=== PATIENT | female | born 1995 | race Caucasian/White ===

== ENCOUNTER 2018-04-17 18:39 | Emergency (ER) | payer OTHER, SELFPAY ==
[2018-04-17 19:09] LABS: Lavender RECEIVED; Red RECEIVED
[2018-04-17 19:10] LABS: #Eosinphils 0.1 thou/uL (0.0-0.7); #Lymphocytes 3.8 thou/uL (1.20-3.40); #Monocytes 0.5 thou/uL (0.11-0.59); #Neutrophils 4.2 thou/uL (1.40-6.50); %Basophils 0.3 % (0.0-1.0); %Eosinophils 1.7 % (0.0-10.0); %Lymphocytes 43.8 % (21.0-51.0); %Monocytes 5.7 % (0.0-10.0); %Neutrophils 48.6 % (42.0-75.0); Mean Corpuscular HGB CONC 34.8 g/dL (32.0-36.0); Mean Corpuscular Volume 89.1 fl (81.0-99.0); Mean Platelet Volume 8.3 fL (7.4-10.4); Platelet Count 229 thou/uL (130-400); Red Blood Cell (RBC) Count 4.18 mill/uL (4.20-5.40); White Blood Cell (WBC) Count 8.6 thou/uL (4.8-10.8)
--- NOTE | 2018-04-17 19:24 | RAD ---
SINGLE VIEW OF THE CHEST 04/17/18 COMPARISON: 09/14/13 HISTORY: Seizure one hour prior to arrival. Patient reports hitting head at the time of the seizure. FINDINGS: Single view of the chest shows a normal sized cardiomediastinal silhouette. There is no evidence of c onsolidation, mass, or pleural effusion. The bones are unremarkable. IMPRESSION: No evidence of acute cardiopulmonary disease. POS: [facility]
[2018-04-17] MEDS ORDERED: Acetaminophen 500 MG TAB ONE (19:32)
[2018-04-17 19:37] LABS: ALT (SGPT) 12 U/L (8-55); AST (SGOT) 13 U/L (5-34); Albumin 4.2 g/dL (3.5-5.0); Alkaline Phosphatase 84 U/L (40-150); Anion Gap 10 mmol/L (10-20); BUN (Urea Nitrogen) 10 mg/dL (7.0-18.7); Bilirubin, Total 0.3 mg/dL (0.2-1.2); Calc. Creatinine Clearance 0 mL/min (70-130); Calcium 9.6 mg/dL (7.8-10.44); Carbon Dioxide 23 mmol/L (22-29); Chloride 112 mmol/L (98-107); Estimated GFR-MDRD Greater than 90; Globulin 2.5 g/dL (2.4-3.5); Glucose 79 mg/dL (70-105); Potassium 3.7 mmol/L (3.5-5.1); Protein, Total 6.7 g/dL (6.0-8.3); Sodium 141 mmol/L (136-145)
[2018-04-17 20:13] LABS: Bilirubin Negative (Negative); Blood, Urine Negative (Negative); Clarity CLEAR (Clear); Glucose, Urine (Dipstick) Negative (Negative); Leukocyte Negative (Negative); Nitrite Negative (Negative); Protein, Urine (Dipstick) Negative (Neg-Trace); Specific Gravity, Urine 1.017 (1.002-1.036); pH, Urine 6.5 (5.0-9.0)
[2018-04-17 20:27] LABS: Pregnancy Test - Urine (BHCG) Negative (Negative); Pregu Control Background? CLEAR/WHITE (CLR/WHITE); Pregu Control Bar Appear? YES (CONTROL BAR); Specific Gravity 1.017 (1.002-1.036)
== END 2018-04-17 21:39 | disposition home or self-care (01) ==
LOC: ERS 18:39
DX: G40.909 Epilepsy, unspecified, not intractable, without status epilepticus (principal); J45.909 Unspecified asthma, uncomplicated; F41.9 Anxiety disorder, unspecified; F31.9 Bipolar disorder, unspecified; F43.10 Post-traumatic stress disorder, unspecified; Z79.899 Other long term (current) drug therapy
CPT/HCPCS: 71045; 80053; 81003; 81025; 83735; 85025; 93005

== ENCOUNTER 2018-12-02 12:15 | Emergency (ER) | payer OTHER ==
[2018-12-02 12:49] LABS: Lavender RECEIVED; Red RECEIVED
[2018-12-02 12:54] LABS: #Eosinphils 0.1 thou/uL (0.0-0.7); #Lymphocytes 2.5 thou/uL (1.20-3.40); #Monocytes 0.6 thou/uL (0.11-0.59); #Neutrophils 6.1 thou/uL (1.40-6.50); %Basophils 0.5 % (0.0-1.0); %Eosinophils 0.6 % (0.0-10.0); %Lymphocytes 27.5 % (21.0-51.0); %Monocytes 6.1 % (0.0-10.0); %Neutrophils 65.4 % (42.0-75.0); Hemoglobin 13.5 g/dL (12.0-16.0); Mean Corpuscular Hemoglobin 30.2 pg (27.0-31.0); Mean Corpuscular Volume 89.1 fL (78.0-98.0); Mean Platelet Volume 8.7 fL (7.4-10.4); Platelet Count 232 thou/uL (130-400); RBC Distribution Width 12.2 % (11.5-14.5); Red Blood Cell (RBC) Count 4.45 mill/uL (4.20-5.40); White Blood Cell (WBC) Count 9.3 thou/uL (4.8-10.8)
[2018-12-02 13:14] LABS: ALT (SGPT) 19 U/L (8-55); AST (SGOT) 11 U/L (5-34); Albumin 4.1 g/dL (3.5-5.0); Alkaline Phosphatase 77 U/L (40-150); Anion Gap 10 mmol/L (10-20); BHCG - Serum Negative (NEGATIVE); BUN (Urea Nitrogen) 8 mg/dL (7.0-18.7); Bilirubin, Total 0.2 mg/dL (0.2-1.2); Calc. Creatinine Clearance 0 mL/min (70-130); Calcium 9.6 mg/dL (7.8-10.44); Carbon Dioxide 29 mmol/L (22-29); Chloride 106 mmol/L (98-107); Estimated GFR-MDRD Greater than 90; Globulin 2.5 g/dL (2.4-3.5); Glucose 106 mg/dL (70-105); Potassium 4.5 mmol/L (3.5-5.1); Pregs Control Background? CLEAR/WHITE (CLR/WHITE); Pregs Control Bar Appear? YES (CONTROL BAR); Protein, Total 6.6 g/dL (6.0-8.3); Sodium 140 mmol/L (136-145)
[2018-12-02] MEDS ORDERED: Ibuprofen 800 MG TAB ONE (13:24)
[2018-12-02] MEDS ORDERED: Acetaminophen 500 MG TAB ONE (13:24)
== END 2018-12-02 13:45 ==
LOC: ERS 12:15
DX: R56.9 Unspecified convulsions (principal); J45.909 Unspecified asthma, uncomplicated; F41.9 Anxiety disorder, unspecified; F31.9 Bipolar disorder, unspecified
CPT/HCPCS: 36415; 80053; 84703; 85025; 99284

== ENCOUNTER 2019-07-06 08:00 | Inpatient (IN) | payer OTHER, SELFPAY ==
[2019-07-06 08:35] LABS: Bacteria/HPF None Seen HPF (None Seen); Bilirubin Negative (Negative); Blood, Urine Negative (Negative); Clarity Turbid (Clear); Glucose, Urine (Dipstick) Normal (Negative); Leukocyte 250 Leu/uL (Negative); Mucous/LPF Rare LPF (<2+); Nitrite Negative (Negative); Pregnancy Test - Urine (BHCG) Negative (Negative); Pregu Control Background? CLEAR/WHITE (CLR/WHITE); Pregu Control Bar Appear? YES (CONTROL BAR); Protein, Urine (Dipstick) Negative (Neg-Trace); RBC/HPF None Seen HPF (0-3); Specific Gravity 1.025 (1.002-1.036); Urobilinogen Normal mg/dL (Less than 2)
[2019-07-06 08:38] LABS: #Eosinphils 0.2 thou/uL (0.0-0.7); #Lymphocytes 2.4 thou/uL (1.20-3.40); #Monocytes 0.7 thou/uL (0.11-0.59); %Basophils 0.2 % (0.0-1.0); %Eosinophils 1.4 % (0.0-10.0); %Lymphocytes 21.6 % (21.0-51.0); %Monocytes 5.8 % (0.0-10.0); %Neutrophils 70.9 % (42.0-75.0); Hemoglobin 11.8 g/dL (12.0-16.0); Mean Corpuscular HGB CONC 33.3 g/dL (32.0-36.0); Mean Corpuscular Hemoglobin 29.9 pg (27.0-31.0); Mean Corpuscular Volume 89.8 fL (78.0-98.0); Platelet Count 250 thou/uL (130-400); RBC Distribution Width 12.3 % (11.5-14.5); Red Blood Cell (RBC) Count 3.95 mill/uL (4.20-5.40); White Blood Cell (WBC) Count 11.3 thou/uL (4.8-10.8)
[2019-07-06 08:56] LABS: ALT (SGPT) 16 U/L (8-55); AST (SGOT) 13 U/L (5-34); Albumin 3.5 g/dL (3.5-5.0); Alkaline Phosphatase 102 U/L (40-150); Anion Gap 11 mmol/L (10-20); BUN (Urea Nitrogen) 12 mg/dL (7.0-18.7); Bilirubin, Total Less than 0.2 mg/dL (0.2-1.2); Calc. Creatinine Clearance 0 mL/min (70-130); Calcium 8.9 mg/dL (7.8-10.44); Carbon Dioxide 24 mmol/L (22-29); Chloride 107 mmol/L (98-107); Estimated GFR-MDRD Greater than 90; Globulin 2.3 g/dL (2.4-3.5); Glucose 103 mg/dL (70-105); Lipase 29 U/L (8-78); Potassium 3.9 mmol/L (3.5-5.1); Protein, Total 5.8 g/dL (6.0-8.3); Sodium 138 mmol/L (136-145)
--- NOTE | 2019-07-06 09:52 | ULT ---
Gallbladder ultrasound: Multiple grayscale images of right upper quadrant obtained according to protocol. INDICATIONS: Right upper quadrant pain. FINDINGS: Patient is not fasting. The gallbladder is contracted and not well evaluated. No evidence of gallston es identified. Common bile duct is normal caliber. Liver is mildly echogenic. Pancreas is mostly obscured but appears unremarkable as visualized. Right kidney is imaged and appears unremarkable. IMPRESSION: Nondiagnostic exam due to nonfasting status. Recommend repeat exam with overnight fast. Technologist describes a negative Moreno's sign.
[2019-07-06] MEDS ORDERED: Morphine 4 MG/ML VIAL ONE (10:22)
--- NOTE | 2019-07-06 10:48 | CT ---
CT ABDOMEN AND PELVIS WITH IV CONTRAST: HISTORY: Right upper quadrant abdominal pain. COMPARISON: 03/17/2015 FINDINGS: There are mild dependent changes in the lung bases. The liver, spleen, pancreas, adrenal glands, and kidneys are normal. The gallbladder is contracted. No calcified gallstones are seen. There is a t iny amount of fluid adjacent to the liver. No free air or lymphadenopathy is seen. Uterus and ovari es are present. A normal appearing appendix is noted. IMPRESSION: Tiny amount of free fluid adjacent to the liver; otherwise unremarkable examination. POS: [facility]
[2019-07-06] MEDS ORDERED: Piperacillin/Tazobactam 4.5 GM VIAL ONE (11:28)
[2019-07-06] MEDS ORDERED: Morphine 4 MG/ML VIAL SLOW IVP PRN (12:54)
[2019-07-06] MEDS ORDERED: Lactated Ringer's 1,000 ML IV SCH (13:00)
[2019-07-06] MEDS: Piperacillin/Tazobactam 3.375 GM in Sodium Chloride 0.9% 100 ML IVPB SCH ×2 (13:28→17:45)
[2019-07-06 13:56] VITALS: BMI 40.8
[2019-07-06] MEDS ORDERED: Ondansetron PF 4 MG/2 ML Vial IVP PRN ×2 (14:07→20:36)
--- NOTE | 2019-07-06 14:34 | HP ---
CHIEF COMPLAINT: Upper abdominal pain. HISTORY OF PRESENT ILLNESS: This is a 23-year-old female with a 3-day history of severe sharp pain in the right upper quadrant, described as 8/10. Radiates to her right shoulder into her back. She has never had this pain before. She denies history of gallstones, jaundice, pancreatitis. She has a seizure disorder and takes Lamictal, has not had a seizure for six months. This pain is associated with nausea, but no vomiting. She notes mild chronic constipation and had a normal bowel movement by her report yesterday. PAST MEDICAL HISTORY: Includes seizure disorder, asthma. SURGICAL HISTORY: Kidney stone lithotripsy with stent, tonsillectomy. SOCIAL HISTORY: No smoking or alcohol. She uses marijuana occasionally. REVIEW OF SYSTEMS: 10-system review of systems otherwise negative unless described above. PHYSICAL EXAMINATION: VITAL SIGNS: Blood pressure 102/67, pulse 62, respirations 18, temperature of 97.9. HEENT: Sclerae anicteric. Oropharynx clear. NECK: No lymphadenopathy. CHEST: Clear. HEART: Regular rate and rhythm. ABDOMEN: Soft, tender right upper quadrant, no localized guarding or rebound. EXTREMITIES: No ischemia or edema to extremities. LABORATORY DATA: Sodium 138, potassium 3.9, creatinine 0.74. Liver function tests normal. Lipase normal. Ultrasound shows a contracted gallbladder without stones. CT shows a contracted gallbladder without stones. There is a small amount of free fluid around the liver. ASSESSMENT: Right upper quadrant pain of uncertain etiology. She does not have gallstones, but her body habitus made the ultrasound slightly more difficult. PLAN: She does have a significant amount of stool in hepatic flexure of her colon. This could explain her symptoms. We will give her some magnesium citrate as well as check a HIDA scan to rule out cholecystitis. If HIDA scan is positive, plan surgery tomorrow. Job ID: [id number]
[2019-07-06] MEDS ORDERED: Magnesium Citrate 300 ML BOT PO SCH (16:00)
[2019-07-06] MEDS ORDERED: ISOVUE-370 76%-LOCM 1 ML ONE (16:43)
--- NOTE | 2019-07-06 18:45 | NM ---
NUCLEAR MEDICINE HEPATOBILIARY SCAN: DATE: 07/06/2019 HISTORY: 23-year-old female with right upper quadrant abdominal pain. Rule out acute cholecystitis. TECHNIQUE: Technetium 99m-mebrofenin dose: 5.0 mCi. Kinevac (CCK analog) dose: 2.1 mcg x 2 The patient was pretreated with Kinevac prior to mebrofeninTc injection. Next, 99- mebrofenin was inj ected IV. Dynamic anterior scintigraphy of abdomen for one hour. Kinevac injected. Additional dynamic anterior scintigraphy of abdomen. Counts obtained over the gallbladder. Time-activity curve g enerated. FINDINGS: There is uptake and washout of activity at the liver. Bowel activity is visualized after CCK injection. The gallbladder ejection fraction is normal: 45 % Patient experienced pain and vomiting after CCK injection. IMPRESSION: 1. No evidence of acute cholecystitis. 2. Gallbladder ejection fraction 45%
[2019-07-06] MEDS: Acetaminophen 1,000 MG in Premix Bag 1 BAG IVPB PRN (19:26)
[2019-07-06] MEDS ORDERED: Promethazine HCl 25 MG/ML VIAL IM PRN (20:36)
[2019-07-06] MEDS ORDERED: Morphine 2 MG/ML SYRINGE SLOW IVP PRN (20:36)
[2019-07-06] MEDS: D5 1/2 NS w/20 mEq KCL 1,000 ML IV SCH (21:13)
[2019-07-07] MEDS: D5 1/2 NS w/20 mEq KCL 1,000 ML IV SCH ×2 (05:41→15:57)
[2019-07-07] MEDS: Acetaminophen 1,000 MG in Premix Bag 1 BAG IVPB PRN (05:43)
[2019-07-07] MEDS: Morphine 4 MG/ML VIAL SLOW IVP PRN ×5 (07:39→23:54)
[2019-07-07] MEDS: Pantoprazole 40 MG VIAL IVP SCH (08:53)
--- NOTE | 2019-07-07 09:14 | PRG ---
DATE OF SERVICE: 07/07/2019 SUBJECTIVE: Ms. Pacheco has persistent right upper quadrant and epigastric pain. She was given magnesium citrate in the evening after her HIDA scan. She vomited some of that. Her pain is persistently sharp in the right upper quadrant, does not radiate. She has been walking some. OBJECTIVE: VITAL SIGNS: Blood pressure 114/71, pulse 62. She is afebrile. GENITOURINARY: No bowel movement yet. ABDOMEN: Slightly distended, but soft. Tender right upper quadrants. No guarding or rebound. LABORATORY DATA: HIDA scan shows normal ejection fraction. Normal gallbladder uptake and excretion. CT scan on admission showed tiny amount of free fluid adjacent to the liver without obvious cholecystitis. Ultrasound showed contracted gallbladder, but no cholecystitis. No stones seen. ASSESSMENT: 1. Right upper quadrant pain, but HIDA scan showing no acute cholecystitis. No biliary dyskinesia. 2. On further questioning, she does have a history of chlamydia, that has been treated twice. PLAN: We will ask GI for their opinion on this pain. Certainly, I do not think she has acute cholecystitis. She does have a lot of retained stool at hepatic flexure of colon, although she vomited the Mag citrate. We will continue supportive care. Job ID: [id number]
[2019-07-07] MEDS ORDERED: GoLYTELY 4,000 ml Bottle PO SCH (15:30)
--- NOTE | 2019-07-07 17:51 | CON ---
DATE OF CONSULTATION: 07/07/2019 CHIEF COMPLAINT: Abdominal pain. HISTORY OF PRESENT ILLNESS: Ms. Pacheco is a 23-year-old woman, who woke up with sharp to cramping pressure-type right upper quadrant pain, that is worse with inspiration. This pain started around 4 days ago and has been fairly continuous since then. She received morphine, which only helped somewhat. She had an ultrasound performed on her abdomen, that showed a contracted gallbladder. She had a CT scan performed, that also showed a small contracted gallbladder without other obvious source of her pain. She then was noted to have increased stool in the right colon near the hepatic flexure. She had a HIDA scan, which was normal overall. The patient reports that she has had chronic diarrhea over the last few years. She has 3 or 4 liquidy stools per day. She has seen blood mixed with the stool and on the toilet paper around 3 times over the last year, but this does not turn the water red. She has had nausea and vomiting associated with the right upper quadrant pain over the last few days. She last threw up yesterday. She has had no fever associated with this. No chest pain, but it does hurt in the right upper quadrant with inspiration. No fever. No weight loss. Her pain does get worse with spicy foods. She has had some intermittent milder pain in the right upper quadrant with inspiration that only lasts for a few seconds at a time over the last several months, that occurs around once per month, again just for a few seconds with inspiration. PAST MEDICAL HISTORY: 1. Seizure disorder. 2. Asthma. 3. She has had prior sexually transmitted infection. PAST SURGICAL HISTORY: 1. Lithotripsy of kidney stone. 2. Tonsillectomy. FAMILY HISTORY: Negative for GI malignancy or inflammatory bowel disease. SOCIAL HISTORY: No tobacco. No alcohol. She has used occasional marijuana. ALLERGIES: ABILIFY, TORADOL, SEROQUEL, RISPERDAL, AND TRAMADOL. HOME MEDICATIONS: Ventolin inhaler. REVIEW OF SYSTEMS: Negative x10 systems reviewed except as stated in the history of present illness. PHYSICAL EXAMINATION: VITAL SIGNS: Temperature 98.1, pulse 76, blood pressure 105/72. GENERAL: She is in no acute distress. Alert and oriented x3. HEENT: Eyes have no scleral icterus. Oropharynx is clear without lesions. LYMPHATICS: No cervical or supraclavicular lymphadenopathy. LUNGS: Clear to auscultation bilaterally. HEART: Regular rate and rhythm without murmur. ABDOMEN: Tender in the right upper quadrant below the right ribs, particularly with inspiration. Otherwise her abdomen is nontender. Her bowel sounds are present. EXTREMITIES: No lower extremity edema. IMPRESSION: 1. Right upper quadrant abdominal pain. This could be secondary to constipation with distention of the right colon with stool by CT scan. She has some stool across the transverse colon as well with a decompressed descending colon. She in general, however, has had chronic diarrhea. She took magnesium citrate yesterday with no stool output. The pain could be related to biliary dyskinesia; however, her HIDA scan is normal and her gallbladder appears unremarkable by imaging other than it is small and contracted. She has a history of sexually transmitted infection and Ukri-Ubni-Eilguw syndrome is a possibility. Irritable bowel syndrome associated with chronic diarrhea is also possibility. 2. Change in bowel habits. Overall, she has had chronic diarrhea with 3 or 4 liquidy stools per day. She has had no bowel movement for the last 2 days despite magnesium citrate yesterday. 3. Hematochezia. She has had blood mixed with the stool and on the toilet paper around 3 times over the last year. This is most likely hemorrhoidal. However, we will plan to rule out inflammatory or neoplastic process. RECOMMENDATIONS: 1. Check stool studies. 2. Plan EGD and colonoscopy tomorrow. 3. If the endoscopy is negative, at some point she might ultimately require surgical intervention empirically for her gallbladder and also adhesive disease around the liver can be evaluated for. Job ID: [id number]
[2019-07-08] MEDS: D5 1/2 NS w/20 mEq KCL 1,000 ML IV SCH ×2 (01:39→17:27)
[2019-07-08] MEDS: Morphine 4 MG/ML VIAL SLOW IVP PRN ×2 (01:39→06:40)
[2019-07-08] MEDS: Pantoprazole 40 MG VIAL IVP SCH (07:49)
--- NOTE | 2019-07-08 08:52 | PRG ---
DATE OF SERVICE: 07/08/2019 SUBJECTIVE: Ms. Pacheco still having pain in the right upper side. She did tolerate the prep and had lots of loose stools. No significant nausea. OBJECTIVE: VITAL SIGNS: Blood pressure 100/59, pulse 60, and respirations 18. ABDOMEN: On exam, her right upper quadrant is beer still runner compounder. ASSESSMENT: Persistent right upper quadrant pain, negative CT, negative ultrasound, negative HIDA scan, to undergo GI evaluation with EGD and colonoscopy today. PLAN: We will see what her upper and lower endoscopy show. Job ID: [id number]
[2019-07-08] MEDS ORDERED: Dicyclomine 10 MG CAP PO PRN (11:39)
--- NOTE | 2019-07-08 12:12 | OP ---
DATE OF PROCEDURE: 07/08/2019 PROCEDURE PERFORMED: Esophagogastroduodenoscopy with biopsy and colonoscopy with biopsy. PREOPERATIVE DIAGNOSIS: Right upper quadrant abdominal pain and change in bowel habits with chronic diarrhea and intermittent constipation. INDICATION: She is admitted with right upper quadrant pain, had ultrasound and CT showing a contracted gallbladder and a HIDA scan that was unremarkable. DESCRIPTION OF PROCEDURE: Informed consent was obtained from the patient. She was sedated with total intravenous anesthesia. The bite block was placed and the endoscope was advanced easily to the second portion of the duodenum and retroflexion was performed in the stomach. The esophagus was normal. The GE junction was normal. The stomach was normal including retroflexed views. The pylorus and first and second portions of the duodenum were normal. Biopsies were obtained from the second portion of the duodenum to rule out celiac disease. The patient was turned around. Rectal exam was performed and was normal. The colonoscope was advanced to the terminal ileum without difficulty. The mucosa of the terminal ileum was normal. The ileocecal valve and appendiceal orifice were clearly identified. The colonic mucosa was normal throughout. Retroflexed views in the rectum were normal. Random biopsies were taken from the right and left colon to rule out microscopic colitis. IMPRESSION: 1. Normal esophagogastroduodenoscopy. Duodenal biopsies taken to rule out celiac disease. 2. Normal ileocolonoscopy. Random biopsies taken from the right and left colon to rule out microscopic colitis. RECOMMENDATIONS: 1. Await histopathology. 2. Advance diet. 3. Abdominal pain is likely functional in nature/IBS. She has not had chronic abdominal pain. The right upper quadrant pain is more of a new issue; however, she has had more chronic diarrhea preceding this. Possibility of Egdr-Nfzb-Qbykjm syndrome is considered. Ultimately, cholecystectomy might have to be considered if the right upper quadrant pain persist. However, the imaging studies have been unremarkable regarding the gallbladder to this point. Job ID: [id number]
[2019-07-08] MEDS ORDERED: PROPOFOL 200 MG/20 ML VIAL ONE (13:20)
[2019-07-08] MEDS ORDERED: Morphine 4 MG/ML VIAL SLOW IVP PRN (21:47)
[2019-07-08] MEDS: Acetaminophen 1,000 MG in Premix Bag 1 BAG IVPB PRN (21:58)
[2019-07-09] MEDS: D5 1/2 NS w/20 mEq KCL 1,000 ML IV SCH ×2 (00:47→04:05)
[2019-07-09] MEDS: Acetaminophen 1,000 MG in Premix Bag 1 BAG IVPB PRN (04:22)
[2019-07-09] MEDS: Pantoprazole 40 MG VIAL IVP SCH (08:04)
[2019-07-09 08:08] VITALS: BP 100/63; TEMP 98.1
--- NOTE | 2019-07-09 10:29 | DIS ---
DATE OF ADMISSION: 07/06/2019 DATE OF DISCHARGE: 07/09/2019 ADMITTING DIAGNOSIS: Right upper quadrant pain. DISCHARGE DIAGNOSIS: Right upper quadrant pain. PROCEDURES: Esophagogastroduodenoscopy and colonoscopy by Dr. Mccrary, negative without complication. CONDITION ON DISCHARGE: Improved. STAFF: Antony Robbins MD HOSPITAL COURSE: The patient was admitted with right upper quadrant pain. Ultrasound and CT scan showed no evidence of biliary disease necessarily. She underwent HIDA scan that showed good uptake of radioactive marker and normal ejection fraction. There was no evidence of cholecystitis. She underwent normal upper and lower endoscopy. She still has some persistent pain. She was offered diagnostic laparoscopy, but turned that down. She wants to go home. She is discharged home with a few [place] and Zofran. Work release was given for return to work next week. She will call my office if the symptoms persist. Job ID: [id number]
[2019-07-10 17:36] LABS: EliA Celiac New Method **** NEW METHOD ****; t-Transglutaminase (tTG) IgA 0.2 EliAU/mL (<7 Negative)
--- NOTE | 2019-07-11 07:15 | PQF ---
[facility] [employer] Win[employer] Viewer MIKY HIDALGO BRYAN DAVID MD [id number] CLINICAL DOCUMENTATION CLARIFICATION FORM: POST DISCHARGE Addendum to original discharge summary date: ____ Late entry note date: __ DATE: 07/11/19 ATTN: Antony Tyler Can you please further specify the etiology of right upper quadrant abdominal pain? Please check appropriate box(s): [ ] IBS w/ diarrhea [ ] constipation [ ]CELIAC DISEASE [ ] Abdominal pain of unknown etiology [ ] Other diagnosis please specify [ ] Unable to determine In addition, please specify: Present on Admission (POA): [ ] Yes [ ] No [ ] Unable to determine For continuity of documentation, please document condition throughout progress notes and discharge summary. Thank You. CLINICAL INDICATORS - SIGNS / SYMPTOMS / LABS Consult pg 07/07 Dr. Mccrary- Right upper quadrant abdominal pain. This could be secondary to constipation with distention of the right colon Consult pg 07/07 Dr. Mccrary- has had chronic diarrhea Consult pg 07/07 Dr. Mccrary- "The pain could be related to biliary dyskinesia Consult pg 07/07 Dr. Mccrary- " bowel syndrome associated with chronic diarrhea is also a possibilityIrritable" Op report pg 07/08- duodenal biopsies taken to rule out celiac disease" PTH surgical specimen pg 07/08- mild duodenal intraepithelial lymphocytosis DS pg 1 07/09- there were no evidence of cholecystitis DS pg 07/09- showed no evidence of biliary disease" RISK FACTORS 3 days history of severe sharp pain right upper quadrant- H and P pg.1 TREATMENTS: GI Consult- Dr Mccrary 07/07 Hepatobiliary Scan-07/06 EGD and Colonoscopy with biopsy- OP report 07/08 Abdominal/pelvis- CT 07/06 Abdominal Ultrasound- 07/06 IV Fluids- JAN 25 Morphine 4mg Slow IV Q4H- JAN 25 (This form is maintained as a part of the permanent medical record) 2014 [employer]. All Rights Reserved [email or web address] [not provided] MTDD
== END 2019-07-09 10:45 | disposition home or self-care (01) | DRG 392 ==
LOC: ERS 08:00 → OBSVTOIN 11:14 → SURG B 11:14
PROVIDERS: ADMIT Surgery; ATTEND Surgery
PROC: 0DB98ZX Excision of Duodenum, Via Natural or Artificial Opening Endoscopic, Diagnostic (ICD-10-PCS; principal; 2019-07-08)
PROC: 0DJD8ZZ Inspection of Lower Intestinal Tract, Via Natural or Artificial Opening Endoscopic (ICD-10-PCS; 2019-07-08)
DX: R10.11 Right upper quadrant pain (principal); G40.909 Epilepsy, unspecified, not intractable, without status epilepticus; K59.09 Other constipation; J45.909 Unspecified asthma, uncomplicated; Z53.29 Procedure and treatment not carried out because of patient's decision for other reasons
CPT/HCPCS: 36415; 74177; 76705; 78227; 80053; 81003; 81015; 81025; 83516; 83630; 83690; 85025; 86850; 86900; 86901; 87045; 87046; 87324; 87328; 87329; 87427; 87449; 88305; 96361; 96365; 96375; A9537; C9113; J0131; J2270; J2405; J2543; J2704; J3490; Q9966

== ENCOUNTER 2019-07-17 11:39 | Emergency (ER) | payer SELFPAY | END 2019-07-17 16:15 | disposition home or self-care (01) | LOC: ERS 11:39 | DX: L08.9 Local infection of the skin and subcutaneous tissue, unspecified (principal); B95.8 Unspecified staphylococcus as the cause of diseases classified elsewhere; F31.9 Bipolar disorder, unspecified; G40.909 Epilepsy, unspecified, not intractable, without status epilepticus; J45.909 Unspecified asthma, uncomplicated; F41.9 Anxiety disorder, unspecified | CPT/HCPCS: 99283 ==

== ENCOUNTER 2019-10-23 17:23 | Emergency (ER) | payer SELFPAY ==
[2019-10-23 18:01] LABS: #Basophils 0.1 thou/uL (0.0-0.2); #Eosinphils 0.1 thou/uL (0.0-0.7); #Lymphocytes 2.9 thou/uL (1.20-3.40); #Monocytes 0.4 thou/uL (0.11-0.59); #Neutrophils 5.4 thou/uL (1.40-6.50); %Basophils 0.7 % (0.0-1.0); %Eosinophils 1.3 % (0.0-10.0); %Lymphocytes 32.4 % (21.0-51.0); %Monocytes 4.8 % (0.0-10.0); %Neutrophils 60.9 % (42.0-75.0); Hemoglobin 13.3 g/dL (12.0-16.0); Mean Corpuscular HGB CONC 33.8 g/dL (32.0-36.0); Mean Corpuscular Hemoglobin 30.2 pg (27.0-31.0); Mean Corpuscular Volume 89.5 fL (78.0-98.0); Mean Platelet Volume 8.8 fL (7.4-10.4); Platelet Count 254 thou/uL (130-400); RBC Distribution Width 12.5 % (11.5-14.5); Red Blood Cell (RBC) Count 4.39 mill/uL (4.20-5.40); White Blood Cell (WBC) Count 8.9 thou/uL (4.8-10.8)
--- NOTE | 2019-10-23 19:37 | ULT ---
Exam: Transabdominal and endovaginal pelvic ultrasound HISTORY:Vaginal bleeding, beginning 3 days ago with clots. Positive home test. COMPARISON: None TECHNIQUE: Transabdominal and endovaginal imaging of the pelvis is performed. Ovaries are interrogate d with grayscale, color flow, Doppler imaging and spectral wave form analysis FINDINGS: Uterus: No myometrial masses. Uterus measurin.9 x 4.1 x 4.0 cm. Endometrium: Homogeneous echotexture. Endometrium diameter: 0.5 cm. No evidence of a gestational sac, yolk sac or pole. Free fluid: Small amount of free fluid in the cul-de-sac Right ovary: Normal echotexture Right ovary measurement: 1.9 x 3.2 x 2.1 cm Left ovary: Normal echotexture. Left ovary measurements: 1.9 x 3.1 x 1.6 cm Ovarian Doppler: There is vascular flow to the left and right ovary. IMPRESSION: No sonographic evidence of intrauterine gestation. Differential considerations include an early intrauterine gestation versus a sonographically occult ectopic versus a missed spontaneous . Follow-up ultrasound and serial beta hCG is recommended
[2019-10-23 20:31] LABS: Bacteria/HPF None Seen HPF (None Seen); Bilirubin Negative (Negative); Blood, Urine 2+ (Negative); Clarity Clear (Clear); Glucose, Urine (Dipstick) Normal (Negative); Leukocyte Negative Leu/uL (Negative); Nitrite Negative (Negative); Protein, Urine (Dipstick) Negative (Neg-Trace); RBC/HPF 0-3 HPF (0-3); Squamous Epithelial 0-3 HPF (0-3); Urobilinogen Normal mg/dL (Less than 2); WBC/HPF 0-3 HPF (0-3)
[2019-10-25 00:45] LABS: Chlamydia by PCR Not Detected (NotDetected); GC by PCR Not Detected (NotDetected)
== END 2019-10-23 21:00 | disposition home or self-care (01) ==
LOC: ERS 17:23
DX: N93.9 Abnormal uterine and vaginal bleeding, unspecified (principal); G40.909 Epilepsy, unspecified, not intractable, without status epilepticus; J45.909 Unspecified asthma, uncomplicated; F41.9 Anxiety disorder, unspecified; F31.9 Bipolar disorder, unspecified
CPT/HCPCS: 36415; 76856; 81003; 81015; 84702; 85025; 86900; 86901; 87480; 87491; 87510; 87591; 87660

== ENCOUNTER 2019-10-24 18:13 | Emergency (ER) | payer SELFPAY | END 2019-10-24 20:15 | disposition home or self-care (01) | LOC: ERS 18:13 | DX: Z23 Encounter for immunization (principal) | CPT/HCPCS: 90384; 96372 ==

== ENCOUNTER 2023-03-25 21:11 | Emergency (ER) | payer SELFPAY ==
[2023-03-25 21:50] LABS: #Basophils 0.1 thou/uL (0.0-0.2); #Eosinphils 0.1 thou/uL (0.0-0.7); #Monocytes 0.4 thou/uL (0.11-0.59); #Neutrophils 4.7 thou/uL (1.40-6.50); %Basophils 0.9 % (0.0-1.0); %Eosinophils 0.8 % (0.0-10.0); %Lymphocytes 36.5 % (21.0-51.0); %Monocytes 4.8 % (0.0-10.0); %Neutrophils 56.9 % (42.0-75.0); Hemoglobin 11.8 g/dL (12.0-16.0); Mean Corpuscular HGB CONC 31.1 g/dL (32.0-36.0); Mean Corpuscular Hemoglobin 29.6 pg (27.0-31.0); Mean Corpuscular Volume 95.1 fl (78.0-98.0); Mean Platelet Volume 9.5 fL (7.4-10.4); Platelet Count 233 10x3/uL (130-400); RBC Distribution Width 13.6 % (11.5-14.5); Red Blood Cell (RBC) Count 3.99 mill/uL (4.20-5.40); White Blood Cell (WBC) Count 8.2 10x3/uL (4.8-10.8)
[2023-03-25 22:09] LABS: ALT (SGPT) 13 U/L (8-55); AST (SGOT) 12 U/L (5-34); Albumin 4.1 g/dL (3.5-5.0); Alkaline Phosphatase 98 U/L (40-110); Anion Gap 11 mmol/L (10-20); BUN (Urea Nitrogen) 12 mg/dL (7.0-18.7); Bilirubin, Total 0.2 mg/dL (0.2-1.2); Calc. Creatinine Clearance 0 mL/min (70-130); Calcium 9.7 mg/dL (7.8-10.44); Carbon Dioxide 27 mmol/L (22-29); Chloride 108 mmol/L (98-107); Estimated GFR 107; Globulin 2.6 g/dL (2.4-3.5); Glucose 102 mg/dL (70-105); Potassium 3.7 mmol/L (3.5-5.1); Protein, Total 6.7 g/dL (6.0-8.3); Sodium 142 mmol/L (136-145)
[2023-03-25 23:41] LABS: BHCG - Serum Negative (NEGATIVE); Pregs Control Background? CLEAR/WHITE (CLR/WHITE); Pregs Control Bar Appear? YES (CONTROL BAR)
== END 2023-03-25 23:57 | disposition home or self-care (01) ==
LOC: ERS 21:11
DX: M62.838 Other muscle spasm (principal); G62.9 Polyneuropathy, unspecified; R55 Syncope and collapse
CPT/HCPCS: 36415; 80053; 84703; 85025; 93005

== ENCOUNTER 2023-05-04 05:33 | Emergency (ER) | payer SELFPAY ==
[2023-05-04 06:21] LABS: #Monocytes 0.9 thou/uL (0.11-0.59); %Basophils 0.3 % (0.0-1.0); %Eosinophils 0.3 % (0.0-10.0); %Lymphocytes 17.7 % (21.0-51.0); %Monocytes 6.5 % (0.0-10.0); %Neutrophils 74.9 % (42.0-75.0); Hemoglobin 12.5 g/dL (12.0-16.0); Mean Corpuscular HGB CONC 33.4 g/dL (32.0-36.0); Mean Corpuscular Hemoglobin 30.5 pg (27.0-31.0); Mean Corpuscular Volume 91.2 fl (78.0-98.0); Mean Platelet Volume 11.1 fL (7.4-10.4); Platelet Count 284 10x3/uL (130-400); RBC Distribution Width 13.8 % (11.5-14.5); White Blood Cell (WBC) Count 13.4 10x3/uL (4.8-10.8)
[2023-05-04 06:26] LABS: BHCG - Serum Negative (NEGATIVE); Pregs Control Background? CLEAR/WHITE (CLR/WHITE); Pregs Control Bar Appear? YES (CONTROL BAR)
[2023-05-04 06:40] LABS: ALT (SGPT) 15 U/L (8-55); AST (SGOT) 18 U/L (5-34); Alkaline Phosphatase 121 U/L (40-110); Anion Gap 12 mmol/L (10-20); BUN (Urea Nitrogen) 10 mg/dL (7.0-18.7); Bilirubin, Total 0.4 mg/dL (0.2-1.2); Calc. Creatinine Clearance 0 mL/min (70-130); Calcium 9.7 mg/dL (7.8-10.44); Carbon Dioxide 22 mmol/L (22-29); Chloride 107 mmol/L (98-107); Estimated GFR 98; Globulin 2.9 g/dL (2.4-3.5); Glucose 96 mg/dL (70-105); Potassium 4.3 mmol/L (3.5-5.1); Protein, Total 6.9 g/dL (6.0-8.3); Sodium 137 mmol/L (136-145)
== END 2023-05-04 07:09 ==
LOC: ERS 05:33
DX: R55 Syncope and collapse (principal); R11.0 Nausea; D72.829 Elevated white blood cell count, unspecified; F17.290 Nicotine dependence, other tobacco product, uncomplicated
CPT/HCPCS: 80053; 84703; 85025; 93005

== ENCOUNTER 2023-09-30 11:57 | Inpatient (IN) | payer SELFPAY ==
[2023-09-30] MEDS ORDERED: Ampicillin/Sulbactam 3 GM VIAL ONE (13:54)
[2023-09-30] MEDS ORDERED: Ondansetron PF 4 MG/2 ML Vial ONE (13:54)
[2023-09-30] MEDS ORDERED: Morphine 4 MG/ML VIAL ONE (13:54)
[2023-09-30] MEDS ORDERED: Sodium Chloride 0.9% 100 ML ONE (13:57)
[2023-09-30 14:06] LABS: #Basophils 0.1 thou/uL (0.0-0.2); #Eosinphils 0.1 thou/uL (0.0-0.7); #Monocytes 0.5 thou/uL (0.11-0.59); #Neutrophils 7.4 thou/uL (1.40-6.50); %Basophils 0.5 % (0.0-1.0); %Eosinophils 0.8 % (0.0-10.0); %Lymphocytes 24.2 % (21.0-51.0); %Neutrophils 69.1 % (42.0-75.0); Hematocrit 38.9 % (36.0-47.0); Hemoglobin 13.1 g/dL (12.0-16.0); Mean Corpuscular HGB CONC 33.7 g/dL (32.0-36.0); Mean Corpuscular Hemoglobin 31.1 pg (27.0-31.0); Mean Corpuscular Volume 92.4 fl (78.0-98.0); Mean Platelet Volume 11.5 fL (7.4-10.4); Platelet Count 244 10x3/uL (130-400); RBC Distribution Width 12.6 % (11.5-14.5); Red Blood Cell (RBC) Count 4.21 mill/uL (4.20-5.40); White Blood Cell (WBC) Count 10.7 10x3/uL (4.8-10.8)
[2023-09-30 14:18] LABS: BHCG - Serum Negative (NEGATIVE); Pregs Control Background? CLEAR/WHITE (CLR/WHITE); Pregs Control Bar Appear? YES (CONTROL BAR)
[2023-09-30 14:25] LABS: ALT (SGPT) 7 U/L (8-55); AST (SGOT) 7 U/L (5-34); Albumin 3.8 g/dL (3.5-5.0); Alkaline Phosphatase 81 U/L (40-110); Anion Gap 8 mmol/L (10-20); BUN (Urea Nitrogen) 9 mg/dL (7.0-18.7); Bilirubin, Total 0.3 mg/dL (0.2-1.2); Calc. Creatinine Clearance 0 mL/min (70-130); Carbon Dioxide 28 mmol/L (22-29); Chloride 107 mmol/L (98-107); Estimated GFR 107; Globulin 1.9 g/dL (2.4-3.5); Glucose 96 mg/dL (70-105); Potassium 4.3 mmol/L (3.5-5.1); Protein, Total 5.7 g/dL (6.0-8.3); Sodium 139 mmol/L (136-145)
[2023-09-30] MEDS ORDERED: Ondansetron ODT 4 MG TAB PO PRN (16:03)
[2023-09-30] MEDS: HYDROcodone/Acetaminophen 5/325 mg Tablet PO PRN (20:27)
[2023-09-30] MEDS: Ampicillin/Sulbactam 3 GM in Sodium Chloride 0.9% 100 ML IVPB SCH (20:29)
[2023-09-30 23:00] VITALS: BMI 40.4
[2023-10-01] MEDS: HYDROcodone/Acetaminophen 5/325 mg Tablet PO PRN ×2 (01:33→08:25)
[2023-10-01] MEDS: Ampicillin/Sulbactam 3 GM in Sodium Chloride 0.9% 100 ML IVPB SCH ×2 (01:34→09:18)
[2023-10-01 04:59] LABS: #Eosinphils 0.1 thou/uL (0.0-0.7); #Monocytes 0.6 thou/uL (0.11-0.59); #Neutrophils 5.1 thou/uL (1.40-6.50); %Basophils 0.5 % (0.0-1.0); %Eosinophils 1.7 % (0.0-10.0); %Lymphocytes 28.2 % (21.0-51.0); %Monocytes 7.8 % (0.0-10.0); %Neutrophils 61.6 % (42.0-75.0); Hematocrit 36.2 % (36.0-47.0); Hemoglobin 11.7 g/dL (12.0-16.0); Mean Corpuscular HGB CONC 32.3 g/dL (32.0-36.0); Mean Corpuscular Hemoglobin 30.1 pg (27.0-31.0); Mean Corpuscular Volume 93.1 fl (78.0-98.0); Mean Platelet Volume 11.4 fL (7.4-10.4); Platelet Count 215 10x3/uL (130-400); RBC Distribution Width 12.8 % (11.5-14.5); Red Blood Cell (RBC) Count 3.89 mill/uL (4.20-5.40); White Blood Cell (WBC) Count 8.2 10x3/uL (4.8-10.8)
[2023-10-01] MEDS ORDERED: Sodium Chloride 0.9% 1,000 ML IV SCH (07:30)
[2023-10-01] MEDS ORDERED: Morphine 2 MG/ML VIAL SLOW IVP PRN (08:54)
[2023-10-01] MEDS ORDERED: Vancomycin 1 GM in Premix 1 BAG IVPB SCH (09:00)
[2023-10-01 09:40] LABS: Hemoglobin A1c 5.4 % (4.0-6.0)
[2023-10-01] MEDS: Cefepime 2 GM in Sodium Chloride 0.9% 100 ML IVPB SCH ×2 (09:41→21:47)
[2023-10-01] MEDS: Sodium Chloride 0.9% 1,000 ML IV SCH ×2 (09:41→15:46)
[2023-10-01] MEDS ORDERED: Vancomycin (BATCH) 2 GM in Premix 1 BAG IVPB SCH ×2 (10:30→11:00)
[2023-10-01] MEDS ORDERED: Lidocaine 1% w/Epinephrine 1:100K 20 ML VIAL NERVE BLCK SCH (12:15)
[2023-10-01 12:28] LABS: Amphetamine Not Detected (NotDetected); Barbiturates Screen Not Detected (NotDetected); Benzodiazepine Screen Not Detected (NotDetected); Cocaine Metabolite Screen Not Detected (NotDetected); Methadone Not Detected (NotDetected); Methamphetamine Not Detected (NotDetected); Opiate Screen Detected (NotDetected); Oxycodone Screen Not Detected (NotDetected); Phencyclidine (PCP) Not Detected (NotDetected); THC/Cannabinoid Screen Detected (NotDetected); Tricyclic Screen Not Detected (NotDetected)
[2023-10-01] MEDS ORDERED: diphenhydrAMINE 12.5 MG/5 ML UDCUP PO SCH (12:30)
[2023-10-01] MEDS ORDERED: Dexamethasone 10 MG in Sodium Chloride 0.9% 50 ML IVPB SCH (12:30)
[2023-10-01] MEDS ORDERED: Dexamethasone 10 MG/ML VIAL SLOW IVP SCH (12:45)
[2023-10-01] MEDS ORDERED: Lidocaine 2% PF 5 ML VIAL ONE (12:56)
[2023-10-01] MEDS: Lorazepam 0.5 MG TAB PO PRN (13:35)
[2023-10-01] MEDS: metroNIDAZOLE 500 MG in Premix 1 BAG IVPB SCH ×2 (15:46→21:46)
[2023-10-01] MEDS ORDERED: metroNIDAZOLE 500 MG/100 ML BAG ONE (20:34)
[2023-10-01] MEDS: Linezolid 600 MG in Premix 1 BAG IVPB SCH (21:48)
[2023-10-01] MEDS: diphenhydrAMINE 25 MG CAP PO PRN (21:50)
[2023-10-01] MEDS ORDERED: Vancomycin (BATCH) 1.5 GM in Premix 1 BAG IVPB SCH (23:00)
[2023-10-02] MEDS: Sodium Chloride 0.9% 1,000 ML IV SCH ×3 (01:15→15:25)
[2023-10-02] MEDS: Acetaminophen 325 MG TAB PO PRN (03:38)
[2023-10-02] MEDS ORDERED: Electrolyte Replacement Protocol 1 EACH FS SCH (03:45)
[2023-10-02] MEDS: metroNIDAZOLE 500 MG in Premix 1 BAG IVPB SCH ×2 (05:37→15:25)
[2023-10-02 06:33] LABS: #Monocytes 0.3 thou/uL (0.11-0.59); #Neutrophils 6.1 thou/uL (1.40-6.50); %Basophils 0.1 % (0.0-1.0); %Monocytes 3.3 % (0.0-10.0); %Neutrophils 81.2 % (42.0-75.0); Hematocrit 34.5 % (36.0-47.0); Hemoglobin 11.4 g/dL (12.0-16.0); Mean Corpuscular Hemoglobin 30.4 pg (27.0-31.0); Mean Platelet Volume 12.2 fL (7.4-10.4); Platelet Count 223 10x3/uL (130-400); RBC Distribution Width 12.3 % (11.5-14.5); Red Blood Cell (RBC) Count 3.75 mill/uL (4.20-5.40); White Blood Cell (WBC) Count 7.5 10x3/uL (4.8-10.8)
[2023-10-02 06:54] LABS: ALT (SGPT) 8 U/L (8-55); AST (SGOT) 7 U/L (5-34); Albumin 3.5 g/dL (3.5-5.0); Alkaline Phosphatase 71 U/L (40-110); Anion Gap 12 mmol/L (10-20); BUN (Urea Nitrogen) 6 mg/dL (7.0-18.7); Bilirubin, Direct 0.1 mg/dL (0.1-0.3); Bilirubin, Total 0.2 mg/dL (0.2-1.2); Calc. Creatinine Clearance 210 mL/min (70-130); Calcium 8.8 mg/dL (7.8-10.44); Carbon Dioxide 20 mmol/L (22-29); Chloride 111 mmol/L (98-107); Estimated GFR 126; Glucose 141 mg/dL (70-105); Magnesium 1.7 mg/dL (1.6-2.6); Protein, Total 5.5 g/dL (6.0-8.3); Sodium 139 mmol/L (136-145)
[2023-10-02 07:31] LABS: HIV (1/2) Antibody/Antigen Non-Reactive (NonReactive); HIV 1/2 INDEX 0.41 S/CO (<1.00)
[2023-10-02] MEDS ORDERED: Magnesium 2 GM/50 ML(in water) 2 GM in Premix 1 BAG IVPB SCH (08:00)
[2023-10-02] MEDS: Cefepime 2 GM in Sodium Chloride 0.9% 100 ML IVPB SCH ×2 (08:40→21:07)
[2023-10-02] MEDS: Linezolid 600 MG in Premix 1 BAG IVPB SCH ×2 (09:55→22:21)
[2023-10-02] MEDS ORDERED: Senokot S 8.6-50 MG TAB PO SCH (10:45)
[2023-10-02] MEDS: Senokot S 8.6-50 MG TAB PO SCH (21:13)
[2023-10-02] MEDS: diphenhydrAMINE 25 MG CAP PO PRN (22:19)
[2023-10-03] MEDS: metroNIDAZOLE 500 MG in Premix 1 BAG IVPB SCH (00:36)
[2023-10-03] MEDS: Sodium Chloride 0.9% 1,000 ML IV SCH ×2 (00:57→08:44)
[2023-10-03] MEDS ORDERED: metroNIDAZOLE 500 MG in Premix 1 BAG IVPB SCH (01:00)
[2023-10-03] MEDS: Lorazepam 0.5 MG TAB PO PRN (01:01)
[2023-10-03 06:17] LABS: #Eosinphils 0.1 thou/uL (0.0-0.7); #Monocytes 0.4 thou/uL (0.11-0.59); %Basophils 0.7 % (0.0-1.0); %Lymphocytes 41.5 % (21.0-51.0); %Neutrophils 49.6 % (42.0-75.0); Hematocrit 35.8 % (36.0-47.0); Hemoglobin 11.8 g/dL (12.0-16.0); Mean Corpuscular Hemoglobin 30.7 pg (27.0-31.0); Mean Corpuscular Volume 93.2 fl (78.0-98.0); Mean Platelet Volume 11.3 fL (7.4-10.4); Platelet Count 223 10x3/uL (130-400); RBC Distribution Width 12.7 % (11.5-14.5); Red Blood Cell (RBC) Count 3.84 mill/uL (4.20-5.40); White Blood Cell (WBC) Count 6.1 10x3/uL (4.8-10.8)
[2023-10-03 06:58] LABS: Anion Gap 10 mmol/L (10-20); BUN (Urea Nitrogen) 10 mg/dL (7.0-18.7); Calc. Creatinine Clearance 179 mL/min (70-130); Calcium 8.3 mg/dL (7.8-10.44); Carbon Dioxide 22 mmol/L (22-29); Chloride 111 mmol/L (98-107); Estimated GFR 116; Glucose 93 mg/dL (70-105); Potassium 3.9 mmol/L (3.5-5.1); Sodium 139 mmol/L (136-145)
[2023-10-03] MEDS: Senokot S 8.6-50 MG TAB PO SCH (08:42)
[2023-10-03] MEDS: Acetaminophen 325 MG TAB PO PRN (08:42)
[2023-10-03] MEDS: Cefepime 2 GM in Sodium Chloride 0.9% 100 ML IVPB SCH (08:43)
[2023-10-03] MEDS: Linezolid 600 MG in Premix 1 BAG IVPB SCH (09:27)
[2023-10-03 10:48] VITALS: BP 104/60; TEMP 97.9
== END 2023-10-03 12:25 | disposition home or self-care (01) | DRG 603 ==
LOC: ERS 11:57 → ERHOLD 15:41 → 2NO 19:02
PROVIDERS: ADMIT Internal Medicine; ATTEND Family Medicine
PROC: 0J910ZZ Drainage of Face Subcutaneous Tissue and Fascia, Open Approach (ICD-10-PCS; principal; 2023-09-30)
PROC: 3E033XZ Introduction of Vasopressor into Peripheral Vein, Percutaneous Approach (ICD-10-PCS; 2023-09-30)
DX: L02.01 Cutaneous abscess of face (principal); L03.211 Cellulitis of face; Z68.41 Body mass index [BMI] 40.0-44.9, adult; I95.9 Hypotension, unspecified; J45.909 Unspecified asthma, uncomplicated; N20.0 Calculus of kidney; B95.0 Streptococcus, group A, as the cause of diseases classified elsewhere; F41.9 Anxiety disorder, unspecified; F32.A Depression, unspecified; F12.10 Cannabis abuse, uncomplicated; E66.01 Morbid (severe) obesity due to excess calories; F17.290 Nicotine dependence, other tobacco product, uncomplicated; Z96.0 Presence of urogenital implants; Z88.8 Allergy status to other drugs, medicaments and biological substances; Z79.899 Other long term (current) drug therapy; Z90.89 Acquired absence of other organs
CPT/HCPCS: 36415; 70486; 70487; 80048; 80053; 80076; 80306; 83036; 83605; 83735; 84703; 85025; 86140; 87040; 87070; 87077; 87205; 87389; 93005; 93010; 96374; 96375; J0295; J0692; J1100; J2001; J2020; J2270; J2272; J2405; J3370; J3475; J3490; J7050; Q0163

== ENCOUNTER 2024-02-11 13:52 | Inpatient (IN) | payer SELFPAY ==
[2024-02-11] MEDS ORDERED: fentaNYL 50 mcg/mL 1 mL Vial ONE ×2 (14:06→16:02)
[2024-02-11 14:31] LABS: #Basophils 0.04 10x3/uL (0.0-0.2); #Eosinphils Less than 0.03 10x3/uL (0.0-0.7); %Basophils 0.3 % (0.0-1.0); %Eosinophils 0.1 % (0.0-10.0); %Lymphocytes 6.9 % (21.0-51.0); %Monocytes 9.1 % (0.0-10.0); %Neutrophils 83.2 % (42.0-75.0); Hematocrit 37.5 % (36.0-47.0); Hemoglobin 12.1 g/dL (12.0-16.0); Mean Corpuscular HGB CONC 32.3 g/dL (32.0-36.0); Mean Corpuscular Hemoglobin 30.9 pg (27.0-31.0); Mean Corpuscular Volume 95.9 fL (78.0-98.0); Mean Platelet Volume 11.2 fL (7.4-10.4); Platelet Count 212 10x3/uL (130-400); RBC Distribution Width 13.2 % (11.5-14.5); Red Blood Cell (RBC) Count 3.91 mill/uL (4.20-5.40)
[2024-02-11 14:38] LABS: BHCG - Serum Negative (NEGATIVE); Pregs Control Background? CLEAR/WHITE (CLR/WHITE); Pregs Control Bar Appear? YES (CONTROL BAR)
[2024-02-11 14:49] LABS: ALT (SGPT) 7 U/L (8-55); AST (SGOT) 8 U/L (5-34); Albumin 3.6 g/dL (3.5-5.0); Alkaline Phosphatase 84 U/L (40-110); Anion Gap 13 mmol/L (10-20); BUN (Urea Nitrogen) 8 mg/dL (7.0-18.7); Bilirubin, Total 0.7 mg/dL (0.2-1.2); Calc. Creatinine Clearance 0 mL/min (70-130); Calcium 8.6 mg/dL (7.8-10.44); Carbon Dioxide 16 mmol/L (22-29); Chloride 108 mmol/L (98-107); Estimated GFR 92; Globulin 2.5 g/dL (2.4-3.5); Glucose 103 mg/dL (70-105); Lipase Less than 4 U/L (8-78); Potassium 3.8 mmol/L (3.5-5.1); Protein, Total 6.1 g/dL (6.0-8.3); Sodium 133 mmol/L (136-145)
[2024-02-11 14:56] LABS: Troponin I Less than 0.010 ng/mL (< 0.028)
[2024-02-11 16:22] LABS: Pregnancy Test - Urine (BHCG) Negative (Negative); Pregu Control Background? CLEAR/WHITE (CLR/WHITE); Pregu Control Bar Appear? YES (CONTROL BAR); Specific Gravity 1.006 (1.002-1.036)
[2024-02-11 16:27] LABS: Bilirubin Negative (Negative); Blood, Urine 1+ (Negative); CAUTI Indications for Culture Pelvic or flank pain; Clarity Clear (Clear); Glucose, Urine (Dipstick) Normal (Negative); Ketone, Urine Negative (Negative); Leukocyte 500 Leu/uL (Negative); Nitrite Negative (Negative); Protein, Urine (Dipstick) Negative (Neg-Trace); RBC/HPF 0-3 HPF (0-3); Specific Gravity, Urine 1.006 (1.002-1.036); Squamous Epithelial 0-3 HPF (0-3); Urobilinogen Normal mg/dL (Less than 2); WBC/HPF Greater than 50 HPF (0-3)
[2024-02-11 16:40] LABS: Bacteria/HPF 1+ HPF (None Seen)
[2024-02-11 16:45] LABS: Urine Culture Reflex Yes Yes
[2024-02-11] MEDS ORDERED: Sodium Chloride 0.9% 100 ML ONE (17:02)
[2024-02-11] MEDS ORDERED: cefTRIAXone (ROCEPHIN) 1 GM VIAL ONE (17:03)
[2024-02-11] MEDS ORDERED: Lorazepam 2 MG/ML VIAL SLOW IVP PRN (18:35)
[2024-02-11] MEDS ORDERED: Albuterol 2.5 MG (3 mL) NEB NEB PRN (19:27)
[2024-02-11] MEDS: Ondansetron PF 4 MG/2 ML Vial IVP PRN (19:55)
[2024-02-11] MEDS: Morphine 4 MG/ML VIAL SLOW IVP PRN (19:56)
[2024-02-11 20:00] VITALS: BMI 41.1
[2024-02-11] MEDS: Lactated Ringer's 1,000 ML IV SCH ×2 (20:04→20:39)
[2024-02-11] MEDS: Meropenem 1 GM in Sodium Chloride 0.9% 100 ML IVPB SCH (20:39)
[2024-02-11] MEDS ORDERED: fentaNYL PF 100 MCG/2 ML SYRINGE ONE (23:09)
[2024-02-11] MEDS ORDERED: PROPOFOL 20 ML ONE ×2 (23:09→23:43)
[2024-02-11] MEDS ORDERED: Iopamidol 15 ML ONE (23:12)
[2024-02-11] MEDS ORDERED: SUGAMMADEX SODIUM 200 MG/2 ML VIAL ONE (23:44)
[2024-02-11] MEDS ORDERED: Dexmedetomidine 200 MCG/2 ML VIAL ONE (23:46)
[2024-02-11] MEDS ORDERED: Lidocaine 1% PF 5 ML VIAL ONE (23:57)
[2024-02-11] MEDS ORDERED: Rocuronium Bromide 10 MG/ML (10ML VIAL) ONE (23:57)
[2024-02-12] MEDS ORDERED: PHENYLEPHRINE-NS 100 MCG/ML 10 ML SYRINGE ONE (00:12)
[2024-02-12] MEDS ORDERED: Ondansetron PF 4 MG/2 ML Vial ONE (00:21)
[2024-02-12] MEDS ORDERED: Ondansetron HCl/PF 4 MG/2 ML Vial IVP PRN (00:33)
[2024-02-12] MEDS ORDERED: Promethazine HCl 25 MG/ML VIAL IM PRN (00:33)
[2024-02-12] MEDS ORDERED: Meperidine HCl/PF 25 MG/ML VIAL SLOW IVP PRN (00:33)
[2024-02-12] MEDS: Acetaminophen 325 MG TAB PO PRN (01:15)
[2024-02-12 04:23] LABS: #Basophils Less than 0.03 10x3/uL (0.0-0.2); #Eosinphils Less than 0.03 10x3/uL (0.0-0.7); %Basophils 0.2 % (0.0-1.0); %Eosinophils 0.1 % (0.0-10.0); %Lymphocytes 11.7 % (21.0-51.0); %Monocytes 9.6 % (0.0-10.0); Hematocrit 33.4 % (36.0-47.0); Hemoglobin 10.9 g/dL (12.0-16.0); Mean Corpuscular HGB CONC 32.6 g/dL (32.0-36.0); Mean Corpuscular Hemoglobin 30.7 pg (27.0-31.0); Mean Corpuscular Volume 94.1 fL (78.0-98.0); Mean Platelet Volume 11.5 fL (7.4-10.4); Platelet Count 172 10x3/uL (130-400); RBC Distribution Width 13.2 % (11.5-14.5); Red Blood Cell (RBC) Count 3.55 mill/uL (4.20-5.40)
[2024-02-12 04:39] LABS: Anion Gap 13 mmol/L (10-20); BUN (Urea Nitrogen) 5 mg/dL (7.0-18.7); Calc. Creatinine Clearance 151 mL/min (70-130); Calcium 8.6 mg/dL (7.8-10.44); Carbon Dioxide 19 mmol/L (22-29); Chloride 109 mmol/L (98-107); Estimated GFR 94; Glucose 120 mg/dL (70-105); Potassium 3.6 mmol/L (3.5-5.1); Sodium 137 mmol/L (136-145)
[2024-02-12] MEDS: Meropenem 1 GM in Sodium Chloride 0.9% 100 ML IVPB SCH (05:52)
[2024-02-12] MEDS: Ondansetron ODT 4 MG TAB PO PRN (05:59)
[2024-02-12] MEDS: Oxybutynin 5 MG TAB PO PRN (05:59)
[2024-02-12] MEDS: HYDROcodone/Acetaminophen 5/325 mg Tablet PO PRN (11:54)
[2024-02-12] MEDS: Fioricet 325/50/40 mg Tablet PO PRN (16:50)
[2024-02-12] MEDS ORDERED: cefTRIAXone\\ROCEPHIN 1 GM in Sodium Chloride 0.9% 100 ML IVPB SCH (17:00)
[2024-02-12] MEDS: Morphine 4 MG/ML VIAL SLOW IVP PRN (22:55)
[2024-02-13 05:42] LABS: #Basophils Less than 0.03 10x3/uL (0.0-0.2); %Basophils 0.2 % (0.0-1.0); %Eosinophils 0.3 % (0.0-10.0); %Lymphocytes 17.5 % (21.0-51.0); %Neutrophils 67.8 % (42.0-75.0); Hematocrit 32.3 % (36.0-47.0); Hemoglobin 10.6 g/dL (12.0-16.0); Mean Corpuscular HGB CONC 32.8 g/dL (32.0-36.0); Mean Corpuscular Hemoglobin 30.5 pg (27.0-31.0); Mean Corpuscular Volume 92.8 fL (78.0-98.0); Mean Platelet Volume 11.8 fL (7.4-10.4); Platelet Count 178 10x3/uL (130-400); RBC Distribution Width 13.2 % (11.5-14.5); Red Blood Cell (RBC) Count 3.48 mill/uL (4.20-5.40)
[2024-02-13 06:08] LABS: Anion Gap 14 mmol/L (10-20); BUN (Urea Nitrogen) 5 mg/dL (7.0-18.7); Calc. Creatinine Clearance 176 mL/min (70-130); Calcium 8.8 mg/dL (7.8-10.44); Carbon Dioxide 20 mmol/L (22-29); Chloride 106 mmol/L (98-107); Estimated GFR 112; Glucose 92 mg/dL (70-105); Potassium 3.7 mmol/L (3.5-5.1); Sodium 136 mmol/L (136-145)
[2024-02-13] MEDS: HYDROcodone/Acetaminophen 5/325 mg Tablet PO PRN (09:40)
[2024-02-13] MEDS ORDERED: Promethazine 25 MG TAB PO PRN (15:33)
[2024-02-13] MEDS: Cyclobenzaprine 10 MG TAB PO SCH (15:45)
[2024-02-13 16:49] VITALS: BP 108/53; TEMP 98
== END 2024-02-13 19:16 | disposition home or self-care (01) | DRG 854 ==
LOC: ERS 13:52 → 2SW 17:46 → OBSVTOIN 02-12 15:46
PROVIDERS: ADMIT Internal Medicine; ATTEND Family Medicine
PROC: 0T768DZ Dilation of Right Ureter with Intraluminal Device, Via Natural or Artificial Opening Endoscopic (ICD-10-PCS; principal; 2024-02-11)
PROC: BT1D1ZZ Fluoroscopy of Right Kidney, Ureter and Bladder using Low Osmolar Contrast (ICD-10-PCS; 2024-02-11)
PROC: 3E03329 Introduction of Other Anti-infective into Peripheral Vein, Percutaneous Approach (ICD-10-PCS; 2024-02-12)
DX: A41.9 Sepsis, unspecified organism (principal); E87.20 Acidosis, unspecified; N20.1 Calculus of ureter; N39.0 Urinary tract infection, site not specified; J45.909 Unspecified asthma, uncomplicated; G40.909 Epilepsy, unspecified, not intractable, without status epilepticus; Z90.49 Acquired absence of other specified parts of digestive tract; Z79.899 Other long term (current) drug therapy; Z88.8 Allergy status to other drugs, medicaments and biological substances; F17.290 Nicotine dependence, other tobacco product, uncomplicated
CPT/HCPCS: 36415; 70450; 74176; 74420; 76705; 76770; 80048; 80053; 81001; 81025; 83605; 83690; 84484; 84703; 85025; 87040; 87077; 87086; 87186; 93005; 96365; 96367; 96375; 96376; C2617; G0378; J0696; J2185; J2270; J2405; J2704; J3010; J3490; J7120; Q0162; Q9967